=== PATIENT | female | born 2000 | race Caucasian/White ===

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

== ENCOUNTER 2024-10-28 19:20 | Emergency (ER) | payer SELFPAY ==
[2024-10-28 19:20] VITALS: BP 116/58; PULSE 64; RESP 18; TEMP 36.2; O2SAT 99; BMI 31.6
--- NOTE | 2024-10-28 19:57 | ED.RN ---
Pt states that she needs to be seen faster because of her vomiting that has been going on for the last 2 days. Pt states she is unable to drink fluids, has water cup with her and drinking out of it. I know it's not because I smoke pot. I'm sick Pt stated to others in waiting room that she is going to leave so that she can get proper care. Pt has left department.
== END 2024-10-28 19:56 | disposition left against medical advice (07) ==
LOC: ED 19:57
DX: R11.2 Nausea with vomiting, unspecified (principal)